=== PATIENT | female | born 1975 | race African-American/Black ===

== ENCOUNTER 2016-07-15 18:31 | Emergency (ER) | payer SELFPAY ==
[~2016-07-15] VITALS: Ht 160 cm; Wt 117.0 kg
[2016-07-15] MEDS ORDERED: METF500T PO (18:42)
[2016-07-15] MEDS ORDERED: LISI10TA2 PO (18:50)
[2016-07-15] MEDS ORDERED: CARV3.12 PO (18:50)
[2016-07-15] MEDS ORDERED: ASPIRIN 81 MG CHEW TABLET PO ONE (19:00)
[2016-07-15 19:14] LABS: BASO % 0.2 % (0.0-1.0); EOS # 0.2 K/mm3 (0.0-0.50); EOS % 3.1 % (0.0-3.0); LARGE UNSTAINED CELL # 0.2 K/mm3 (0.0-0.4); LYMPH # 2.1 K/mm3 (1.5-4.5); LYMPH % 27.1 % (24.0-44.0); MEAN CORPUSCULAR HEMOGLOBIN 30.1 pg (27.0-33.0); MEAN CORPUSCULAR HGB CONC 34.4 g/dl (32.0-36.5); MEAN CORPUSCULAR VOLUME 87.4 fl (80.0-96.0); MONO # 0.4 K/mm3 (0.0-0.8); MONO % 5.6 % (0.0-5.0); NEUTROPHILS # 4.8 K/mm3 (1.8-7.7); PLATELET COUNT, AUTOMATED 196 k/mm3 (150-450); RED CELL DISTRIBUTION WIDTH 11.9 % (11.5-14.5); WHITE BLOOD COUNT 7.7 K/mm3 (4.0-10.0)
--- NOTE | 2016-07-15 19:17 | ECGEPIP ---
Stationary ECG Study [facility] - ED Test Date: 2016-07-15 Pat Name: GLADYS BURRELL Department: Room: - Gender: F Finance Specialist: ting : 1975 Requested By: Luís Rodrigues Order Number: [id number] Reading MD: Cyrus Paredes Measurements Intervals [place] Rate: 87 P: 54 [place]: 202 QRS: 2 QRSD: 98 T: 18 QT: 337 QTc: 407 Interpretive Statements SINUS RHYTHM Electronically Signed On 07-15-2016 19:17:02 EDT by Cyrus aPredes
[2016-07-15 19:20] LABS: CONTROL LINE HCG INT CTR LINE PRESENT
[2016-07-15 19:29] LABS: ANION GAP 9 MEQ/L (8-16); BLOOD UREA NITROGEN 10 MG/DL (7-18); CALCIUM LEVEL 8.6 MG/DL (8.5-10.1); CARBON DIOXIDE LEVEL 28 MEQ/L (21-32); CHLORIDE LEVEL 101 MEQ/L (98-107); CREATININE FOR GFR 0.76 MG/DL (0.55-1.02); GLOMERULAR FILTRATION RATE > 60.0 (>58); GLUCOSE, FASTING 201 MG/DL (70-105); POTASSIUM SERUM 3.5 MEQ/L (3.5-5.1); SODIUM LEVEL 138 MEQ/L (136-145)
--- NOTE | 2016-07-15 19:49 | REP ---
Clinical: Chest pain . Comparison: None . Findings: The mediastinum and cardiac silhouette are stable and within normal limits for portable technique. The lung mcneil are clear without acute consolidation, effusion, or pneumothorax. Skeletal structures are intact. Impression: Normal portable chest x-ray Signed by Feliciano Lopez MD 07/15/2016 07:41 P
[2016-07-15] MEDS ORDERED: CLIN1CAP5 PO (20:24)
[2016-07-15 20:32] VITALS: BP 144/76
== END 2016-07-15 20:40 | disposition home or self-care (01) ==
LOC: M ED 19:36
DX: R07.9 Chest pain, unspecified (principal); R06.02 Shortness of breath; R11.0 Nausea; R00.2 Palpitations; E11.9 Type 2 diabetes mellitus without complications; J45.909 Unspecified asthma, uncomplicated; Z79.84 Long term (current) use of oral hypoglycemic drugs